=== PATIENT | male | born 2000 | race Caucasian/White ===

== ENCOUNTER 2019-08-27 20:20 | Emergency (ER) | payer OTHER ==
[~2019-08-27] VITALS: Ht 167.6 cm; Wt 85.3 kg
[2019-08-27 20:50] VITALS: BP 122/79
--- NOTE | 2019-08-28 00:34 | NUR ---
PATIENT LEFT WITHOUT BEING SEEN BY DR. SHELL. NO FURTHER CARE PROVIDED FOR PATIENT.
== END 2019-08-28 00:20 | disposition left against medical advice (07) ==
LOC: MED 20:20
DX: R51 Headache (principal); Z53.21 Procedure and treatment not carried out due to patient leaving prior to being seen by health care provider

== ENCOUNTER 2023-12-08 02:55 | Emergency (ER) | payer SELFPAY ==
[~2023-12-08] VITALS: Ht 165.1 cm; Wt 92.5 kg
[2023-12-08 03:03] VITALS: BP 126/84; PULSE 88; RESP 16; TEMP 98.6; O2SAT 95
[2023-12-08] MEDS: ACETAMINOPHEN EXTRA STRENGTH 500 MG TAB PO ONE (03:44)
[2023-12-08] MEDS ORDERED: ACET500T99 PO (04:17)
[2023-12-08] MEDS ORDERED: IBUP-1842 PO (04:17)
[2023-12-08] MEDS ORDERED: BACTO TP (04:17)
[2023-12-08] MEDS ORDERED: BACITRACIN OINT 500 UNITS/GM PKT TP ONE (04:22)
[2023-12-08 04:25] VITALS: BP 126/84; PULSE 88; RESP 16; TEMP 98.6; O2SAT 95
== END 2023-12-08 04:25 | disposition home or self-care (01) ==
LOC: MED 02:55
DX: S02.2XXA Fracture of nasal bones, initial encounter for closed fracture (principal); S01.01XA Laceration without foreign body of scalp, initial encounter; S01.311A Laceration without foreign body of right ear, initial encounter; Y04.8XXA Assault by other bodily force, initial encounter; Y93.89 Activity, other specified; Y92.89 Other specified places as the place of occurrence of the external cause; Y99.8 Other external cause status
CPT/HCPCS: 12001; 70450; 70486; 90471; 90715; 99285

== ENCOUNTER 2023-12-11 21:21 | Emergency (ER) | payer SELFPAY ==
[~2023-12-11] VITALS: Ht 165.1 cm; Wt 90.7 kg
[~2023-12-11 21:21] MED LIST: ACET500T99 PO; BACTO TP; IBUP-1842 PO
[2023-12-11 21:31] VITALS: BP 126/75; PULSE 76; RESP 18; TEMP 97.9; O2SAT 96
[2023-12-11] MEDS: KETOROLAC 60 MG/2 ML VIAL IM ONE (22:20)
[2023-12-11 22:23] VITALS: BP 117/75; PULSE 64; RESP 17; O2SAT 95
[2023-12-11] MEDS ORDERED: IBUP-2213 PO (23:34)
== END 2023-12-11 23:47 | disposition home or self-care (01) ==
LOC: MED 21:21
DX: S06.0X0A Concussion without loss of consciousness, initial encounter (principal); Z79.899 Other long term (current) drug therapy; X58.XXXA Exposure to other specified factors, initial encounter; Y93.89 Activity, other specified; Y92.89 Other specified places as the place of occurrence of the external cause; Y99.8 Other external cause status
CPT/HCPCS: 96372; 99283; J1885

== ENCOUNTER 2023-12-18 11:06 | Emergency (ER) | payer SELFPAY ==
[~2023-12-18] VITALS: Ht 165.1 cm; Wt 93.0 kg
[~2023-12-18 11:06] MED LIST changes: +IBUP-2213 PO
[2023-12-18 11:13] VITALS: BP 135/92; PULSE 92; RESP 17; TEMP 97.7; O2SAT 96
== END 2023-12-18 11:31 | disposition home or self-care (01) ==
LOC: MED 11:06
DX: S01.01XD Laceration without foreign body of scalp, subsequent encounter (principal); S01.311D Laceration without foreign body of right ear, subsequent encounter; Z48.00 Encounter for change or removal of nonsurgical wound dressing; Z79.899 Other long term (current) drug therapy; X58.XXXD Exposure to other specified factors, subsequent encounter
CPT/HCPCS: 99281